=== PATIENT | female | born 1955 | race Two or more races ===

== ENCOUNTER → 2023-12-30 | Outpatient (CLI) | payer OTHER, SELFPAY ==
[2023-12-30 09:27] LABS: Glucose Estimated Average 103 mg/dL (80-131); Hemoglobin A1C 5.2 % Hgb (4.8-6.0)
[2023-12-30 09:30] LABS: Creatinine MALB Rnd Ur 102 mg/dL (30-125); Microalbumin, Random Urine < 3 mg/L (0-300)
[2023-12-30 09:32] LABS: Alanine Aminotransferase 19 U/L (10-49); Albumin, Serum 4.3 gm/dL (3.4-4.8); Alkaline Phosphatase 97 U/L (46-116); Anion Gap 5 (7-16); Aspartate Amino Transferase 20 U/L (0-34); BUN/Creatinine Ratio 30 Ratio (12-20); Bilirubin,Total 0.7 mg/dL (0.3-1.2); Blood Urea Nitrogen 15 mg/dL (9-23); Calcium 9.3 mg/dL (8.3-10.6); Calcium (Corrected) 9.3 mg/dL (8.5-10.1); Carbon Dioxide 25.4 mMol/L (20.0-31.0); Cardiac Risk Estimate 1.9 RATIO (3.7-5.6); Chloride 110 mMol/L (98-107); Cholesterol 125 mg/dL (132-200); Creatinine (Component) 0.5 mg/dL (0.6-1.3); Globulin 2.1 gm/dL (2.3-3.5); Glucose 90 mg/dL (74-106); HDL Cholesterol 67 mg/dL (40-60); LDL Cholesterol,Calculated 41 mg/dL (0-130); Osmolality,Calculated 280 (275-295); Potassium 4.3 mMol/L (3.4-5.1); Sodium 140 mMol/L (136-145); Total Protein 6.4 gm/dL (5.7-8.2); Triglycerides 85 mg/dL (30-150); eGFR > 60 See Note
[2023-12-30 09:33] LABS: Vitamin D 25 Hydroxy Total 36.9 ng/mL (7.3-40.2)
[2023-12-30 09:35] LABS: Parathyroid Hormone Intact 86.4 pg/ml (18.5-88.0)
== END | disposition home or self-care (01) ==
LOC: CDIM 08:12 → COPL 08:16
PROVIDERS: PCP Specialist; Referring Provider Specialist; Visit Provider Specialist
DX: E11.65 Type 2 diabetes mellitus with hyperglycemia (principal); E78.2 Mixed hyperlipidemia; E21.3 Hyperparathyroidism, unspecified
CPT/HCPCS: 36415; 80053; 80061; 82043; 82306; 82570; 83036; 83970

== ENCOUNTER → 2024-03-30 | Outpatient (CLI) | payer OTHER, SELFPAY ==
--- NOTE | 2024-03-30 09:07 | XR_ITS ---
Examination: Bilateral hips, AP pelvis, 5 views Technique: AP, lateral views both hips, AP pelvis, 5 views Exam date and time: March 30, 2024 0911 hours INDICATIONS: Bilateral hip pain beginning 3 weeks ago. FINDINGS: Prominent osteopenia Moderate narrowing right hip joint Mild narrowing left hip joint No hip or pelvic fracture IMPRESSION: Moderate narrowing right hip joint Mild narrowing left hip joint
== END | disposition home or self-care (01) ==
PROVIDERS: PCP Specialist; Referring Provider Specialist; Visit Provider Specialist
DX: M25.852 Other specified joint disorders, left hip (principal); M25.851 Other specified joint disorders, right hip
CPT/HCPCS: 73523

== ENCOUNTER → 2024-06-08 | Outpatient (CLI) | payer OTHER, SELFPAY ==
--- NOTE | 2024-06-08 | XR_ITS ---
Examination: Bilateral knees, standing AP 2 views. Technique: Standing bilateral AP knees single view, standing bilateral PA knees single view, flexion Exam date and time: June 08, 2024 0921 hours INDICATIONS: Bilateral knee pain beginning 6 months ago FINDINGS: Prominent osteopenia Advanced narrowing lateral joint space right knee Advanced narrowing medial joint space left knee Significant osteoarthritis lateral joint space left knee No fractures IMPRESSION: Advanced narrowing lateral joint space right knee Advanced narrowing medial joint space left knee
--- NOTE | 2024-06-08 09:08 | XR_ITS ---
Examination: Lumbar spine 3 views Technique one AP lateral coned lateral lower lumbar spine 3 views Exam date and time: June 08, 2024 0921 hours INDICATIONS: Low back pain radiating down the left leg several years FINDINGS: Moderate osteopenia Chronic osteoporotic compression T12 No acute lumbar fracture Moderate to advanced degenerative disc disease at the lower 4 lumbar levels No spondylolisthesis IMPRESSION: Moderate to advanced degenerative disc disease at the lower 4 lumbar levels
== END | disposition home or self-care (01) ==
PROVIDERS: PCP Specialist; Referring Provider Orthopaedic Surgery; Visit Provider Orthopaedic Surgery
DX: M51.360 Other intervertebral disc degeneration, lumbar region with discogenic back pain only (principal); M25.862 Other specified joint disorders, left knee; M25.861 Other specified joint disorders, right knee
CPT/HCPCS: 72100; 73565

== ENCOUNTER → 2024-06-25 | Outpatient (CLI) | payer OTHER, SELFPAY ==
--- NOTE | 2024-06-25 13:20 | XR_ITS ---
Examination: Bone densitometry Date and time of exam:June 25, 2024 1347 hours INDICATIONS: Menopause age 57 postmenopausal rib and sternal fractures Technique: Lumbar spine and hip total bone mineralization values of an calculated. Peak reference and age match control results have been displayed. Findings: Lumbar spine total bone mineralization is1.022 gm/cm2. This is 0.2 standard deviations below peak reference. This is 1.7 standard deviations above age-matched controls. Hip total bone mineralization is 0.770 gm/cm2 This is 1.4 standard deviations below peak reference. This is 0.2 standard deviations below age-matched controls Impression: There is normal mineralization based on lumbar spine measurements. There is osteopenia based on hip measurements Lumbar mineralization is increase 0.1% compared with January 29, 2022 Hip mineralization is decreased 8% compared with January 29, 2022
== END | disposition home or self-care (01) ==
LOC: CDIM 13:11
PROVIDERS: Referring Provider Specialist; Visit Provider Specialist
DX: Z13.820 Encounter for screening for osteoporosis (principal); M85.89 Other specified disorders of bone density and structure, multiple sites
CPT/HCPCS: 77080

== ENCOUNTER → 2024-08-10 | Outpatient (CLI) | payer OTHER, SELFPAY ==
[2024-08-10 10:31] LABS: Glucose Estimated Average 100 mg/dL (80-131); Hemoglobin A1C 5.1 % Hgb (4.8-6.0)
[2024-08-10 10:37] LABS: Alanine Aminotransferase 19 U/L (10-49); Albumin, Serum 4.1 gm/dL (3.4-4.8); Albumin/Globulin Ratio 1.8 (1.2-2.2); Alkaline Phosphatase 115 U/L (46-116); Anion Gap 5 (7-16); Aspartate Amino Transferase 26 U/L (0-34); BUN/Creatinine Ratio 27 Ratio (12-20); Bilirubin,Total 0.6 mg/dL (0.3-1.2); Blood Urea Nitrogen 16 mg/dL (9-23); Cardiac Risk Estimate 1.9 RATIO (3.7-5.6); Chloride 110 mMol/L (98-107); Cholesterol 119 mg/dL (132-200); Creatinine (Component) 0.6 mg/dL (0.6-1.3); Globulin 2.3 gm/dL (2.3-3.5); Glucose 87 mg/dL (74-106); HDL Cholesterol 63 mg/dL (40-60); LDL Cholesterol,Calculated 43 mg/dL (0-130); Osmolality,Calculated 287 (275-295); Potassium 4.6 mMol/L (3.4-5.1); Sodium 144 mMol/L (136-145); Total Protein 6.4 gm/dL (5.7-8.2); Triglycerides 63 mg/dL (30-150); eGFR > 60 See Note
[2024-08-10 10:40] LABS: Creatinine MALB Rnd Ur 148 mg/dL (30-125); Microalbumin Creat Ratio 4 mg/gCrea (<30); Microalbumin, Random Urine 6 mg/L (0-300)
== END | disposition home or self-care (01) ==
LOC: COPL 08:57
PROVIDERS: PCP Specialist; Referring Provider Specialist; Visit Provider Specialist
DX: E11.65 Type 2 diabetes mellitus with hyperglycemia (principal); E78.2 Mixed hyperlipidemia
CPT/HCPCS: 36415; 80053; 80061; 82043; 82570; 83036

== ENCOUNTER 2024-09-18 09:18 | Outpatient (AMB) | payer OTHER, SELFPAY ==
[2024-09-18 09:35] VITALS: BP 108/72; PULSE 71; RESP 18; TEMP 36.2; O2SAT 96; BMI 31.7
--- NOTE | 2024-09-18 09:35 | ORTHONT_ITS ---
Vital signs 09/18/24 09:35 Height 1.63 m Height Method Stated Weight 83.943 kg Weight Measurement Method Standing Scale BMI 31.7 BP 108/72 Blood Pressure Source Automatic Cuff Blood Pressure Location Left Upper Arm Position Sitting Respiration 18 Pulse 71 Pulse Source Monitor Temp 97.2 F Temp Source Temporal Artery Scan Pulse Oximetry (%) 96 Oxygen Delivery Method Room Air Med/Allergies Allergies & Medications Allergies No Known Allergies Allergy (Verified 09/18/24 09:35) Medication Reconciliation rosuvastatin 5 mg tablet 5 mg PO HS 12/01/22 [History Confirmed 09/18/24] semaglutide 1 mg/dose (4 mg/3 mL) subcutaneous pen injector (Ozempic) 1 mg subcut QWEEK 12/01/22 [History Confirmed 09/18/24] celecoxib 50 mg capsule 50 mg PO BID 09/18/24 [History Confirmed 09/18/24] Exam Exam Patient is in no acute distress and is cooperative with the examination today. Breathing is nonlabored. Patient has a normal mood and affect. Bilateral extremities were evaluated and demonstrates sensation intact to light touch. Palpable pedal pulses are present. No significant edema is present. Bilateral hips were examined. The patient has no pain with log roll of the hips. Internal rotation to 30 degrees and external rotation to 30 degrees is painless. Negative FADIR. Right knee was examined today. The right knee is in reasonable alignment. Range of motion from 0-120 degrees. Knee is stable to varus and valgus as well as AP translation with <5mm. Patient has a negative McMurrays. There is no pain with patellofemoral compression and no crepitus noted. The knee is nontender to palpation. Left knee was examined today. The left knee is in varus alignment. Range of motion from 0-115 degrees. Knee is stable to varus and valgus as well as AP translation with <5mm. Patient has a negative McMurrays. There is no pain with patellofemoral compression and no crepitus noted. The knee is tender to palpation medially. X-rays demonstrate significant joint space loss medially on the left knee. She has near [id number] arthritis with osteophytes present. On the right side there is valgus arthritis with lateral joint space narrowing Assessment and Plan Problem List (1) Degenerative arthritis of knee, bilateral: Status: Acute Plan: Patient is a pleasant 69-year-old female with bilateral knee pain and bilateral knee arthritis. We discussed different treatment options. The left knee pain is worse than the right. We discussed nonoperative treatment she has failed this including Celebrex that she is very against needles. At this point she has failed conservative treatment we discussed total knee replacement is a reasonable option. She would like to start on the left as this is significantly worse The nature and purpose of the total knee replacement, alternative method(s) of treatment, the material risks involved, and the possibility of complications were fully explained to the patient. The patient does NOT have any of the following contraindications to TKA: - Active infection of the knee joint, OR - Active systemic bacteremia, OR - Active skin infection or open wound at surgical site, OR - Neuropathic arthritis, OR - Severe, rapidly progressive neurological disease, OR - Severe medical condition that makes risks of surgery outweigh the potential benefit The patient was told the most common risks and complications associated with a total knee replacement include, but are not limited to: blood clots in the leg, fatal pulmonary embolism, dislocation of the prosthesis, intraoperative and postoperative fractures of the femur or tibia, infection, failure of the prosthesis or grafting materials, complications from anesthesia, reactions to blood transfusions, postoperative leg length inequality, instability of the knee replacement, nerve damage or injury, vascular injury, delayed wound healing, infection, other injury or even . In addition, there are risks associated with anesthesia given during this operation. Also, the patient was told that after undergoing a total knee replacement there may still be persistent pain or disability. The patient was informed that the success of this operation in part depends upon the mechanical devices which are going to be implanted and that these devices can fail or malfunction, and may need to be repaired or replaced and there are no guarantees as to the longevity of this device or its parts and that it or its parts could fail prematurely. The patient was also notified that during the course of surgery, there may be a need to use bone graft from donors, and that any bone graft used will be carefully screened for communicable diseases, including AIDS, hepatitis, Burton-Creutzfeldt, or other diseases, but despite the screening procedures, there is a small chance that they could contract one of these diseases. Finally, the patient was asked to follow completely and fully with all advice and recommended treatments, and that recovery and ultimate outcome are affected by their compliance with recommended treatment. We discussed the risks, benefits and treatment alternatives, and the patient is interested in proceeding with surgery. We will try to set this up as expeditiously as possible. Advanced Care Planning Discussion Advance care planning discussed with:: patient Office Procedures GNS Level of Care Nursing/Assessment Patient Status: Initial/New Patient Nursing Assessment/Reassesment: Medication Reconciliation, Update PMH in EMR and Vital Signs Coordination of Care: Complex Care and Chronic Disease 1-5, Education Complex Pt/Fam, Consent,records obtained, informed consent, 1 Ins Authorization, Lab and Imaging orders, Results/Orders obtained and Staff clarify orders New Patient Charge New Patient Point Assignment: 1124 New Patient Point Charge: HAND CLOTH FOLDER Level 4 ([id number]) MA Intake Visit Data Collection New Patient or Established: New Patient (never been to [facility]) Reason for Visit:: OA LEFT KNEE Seen by Clinical Staff ONLY (RN/MA): No PCP or OBGYN visit in last 3 months: Yes Hx Now: No Do You Feel Safe at Home: Yes Authorities Contacted: N/A Questionairres Past Medical History Past Medical History Have you ever been diagnosed with any of the following: Neurological Problems Seizures: No Migraine: Yes Cardiology Problems Hypercholesterolemia: Yes Congestive Heart Failure: No Hypertension: Yes Respiratory Problems Chronic Obstructive Pulmonary Disease (COPD): No Smoking: Yes (40 YEARS) Smoking Cessation Counseling: No Smoking Exposure: Yes Stomache/Intestinal Problems Ulcer: Yes (HOSP X3 DAYS 2015) Obesity: Yes Genital/Urinary Problems Renal Disease: No Reproductive Problems Previous Pregnancies: Yes (X4) Musculoskeletal Problems Arthritis: Yes Head,Eye,Nose,Throat Problems Eye Prosthesis: Yes (BRAULIO LASIK) Endocrine Problems Diabetes Mellitus Type 1: No Diabetes Mellitus Type 2: Yes Blood Problems Anemia: Yes Other Problems Hospitalization: Yes ([facility]P [facility] 2016) Shingles: Yes (2014) Falls: Yes (11/01) Blood Transfusions: No Blood Transfusion Reaction: No Anesthesia Reactions: No Chemotherapy: No Radiation Therapy: No MRSA: No Chicken Pox: Yes Cancer: No Subjective Visit Visit for: new patient and knee (LEFT) Immunization / Flu Flu Vaccine in the Last 12 Months: Yes Flu Vaccine Exclusion Criteria: Already Received History of Present Illness Chief complaint: OSTEOARTHRITIS LEFT KNEE Date of injury / onset of symptoms: 5+ YEARS Date of 1st surgery (if applicable): 10 YEARS AGO MENISCUS TEAR BL KNEE BY DR BERNICE Ash is a pleasant 69-year-old female with left knee pain that has been ongoing for a while. She has had a prior meniscectomy 10 years ago. She has significant left knee pain. She is very against the needles and does not want a n injection today. She reports the pain is affecting her quality life and happiness. She has tried Celebrex. Personal History Occupation: RETIRED TEACHER Hobbies: WALKING Red flag PMH: smoker BMI Counceling provided: Yes Additional comments: SMOKER 40+ YERAS Pain Pain level (0-10): 6 Pain duration: WORSE AT NIGHT Pain location: anterior and posterior Pain quality: sharp, dull, aching and other (specify) (THROBBING) Pain timing: night and increases with activity Associated signs & symptoms: other (specify) Ambulatory data Ambulatory device: none Treatments Number of previous injections: 0 Improvement with previous injections: No Improvement with PT: No Improvement with NSAIDS: no Review of Systems Review of Systems: All systems negative unless otherwise noted in HPI.
== END 2024-09-18 10:11 | disposition home or self-care (01) ==
LOC: HODSRG 09:18
PROVIDERS: PCP Specialist; Referring Provider Specialist; Supervising Provider Orthopaedic Surgery Adult Reconstructive Orthopaedic Surgery; Visit Provider Orthopaedic Surgery Adult Reconstructive Orthopaedic Surgery
DX: M17.0 Bilateral primary osteoarthritis of knee (principal); M25.562 Pain in left knee; M25.561 Pain in right knee; I10 Essential (primary) hypertension; E78.00 Pure hypercholesterolemia, unspecified; E11.9 Type 2 diabetes mellitus without complications; E66.9 Obesity, unspecified; Z71.3 Dietary counseling and surveillance; Z68.31 Body mass index [BMI] 31.0-31.9, adult
CPT/HCPCS: 99204; G0463

== ENCOUNTER → 2024-10-09 | Outpatient (CLI) | payer OTHER, SELFPAY ==
--- NOTE | 2024-10-09 14:15 | XR_ITS ---
Examination: Screening digital mammography, bilateral Computer aided detection 3-D breast Tomosynthesis, bilateral Date and time of exam: 10/09/2024, 1:50 PM Comparisons: May 2015 through June 2023 Indications: Screening, prior right lumpectomy Technique: Nonmagnified MLO, CC views of the breasts to been obtained, reconstructed from 3-D Tomosynthesis images. R2 computer aided detection program utilized for evaluation of suspicious masses and/or abnormal calcifications. 3-D Tomosynthesis images obtained. Technologist: Findings: There are scattered areas of fibroglandular density. No evidence of abnormal masses or suspicious calcifications. Impression: BI-RADS category 1: Negative findings (within normal) Recommend 1 year follow-up mammogram
== END | disposition home or self-care (01) ==
LOC: CDIM 13:42
PROVIDERS: Referring Provider Specialist; Visit Provider Specialist
DX: Z12.31 Encounter for screening mammogram for malignant neoplasm of breast (principal); R92.313 Mammographic fatty tissue density, bilateral breasts
CPT/HCPCS: 77063; 77067

== ENCOUNTER → 2024-12-04 | Outpatient (CLI) | payer OTHER, SELFPAY ==
[2024-12-04 16:23] LABS: Collection Type, Urine Clean Catch
[2024-12-04 17:33] LABS: Basophils # (Auto) 0.0 Thou/mm3 (0.0-0.2); Basophils % (Auto) 1 % (0-2.5); Eosinophils # (Auto) 0.2 Thou/mm3 (0.0-0.5); Eosinophils % (Auto) 3 % (0-10); Hematocrit 40.8 % (36.0-46.0); Hemoglobin 13.2 g/dL (12.0-16.0); Immature Granulocytes Auto 0.02 Thou/mm3 (0.00-0.00); Lymphocytes # (Auto) 1.6 Thou/mm3 (1.0-4.8); Lymphocytes % (Auto) 27 % (10-50); Mean Corpuscular HGB Conc 32.4 g/dl (31.0-37.0); Mean Corpuscular Hemoglobin 31.5 pg (25.0-35.0); Mean Corpuscular Volume 97 fL (80-100); Monocytes # (Auto) 0.4 Thou/mm3 (0.0-0.8); Monocytes % (Auto) 7 % (0-12); Neutrophils # (Auto) 3.7 Thou/mm3 (1.8-7.7); Neutrophils % (Auto) 62 % (37-80); Nucleated Red Blood Cell # 0.00 Thou/mm3 (0.00-0.00); Nucleated Red Blood Cell % 0 /100 WBC (0); Platelet Count 158 Thou/mm3 (140-440); RDW Standard Deviation 47.8 fL (36.4-46.3); Red Blood Count 4.19 Miln/mm3 (4.00-5.20); White Blood Count 5.9 Thou/mm3 (3.6-11.0)
[2024-12-04 17:37] LABS: Bilirubin,Urine Negative (Negative); Blood,Urine Negative (Negative); Clarity,Urine Clear (Clear/Hazy); Color,Urine Yellow (Lt Yel-Yel); Culture Indicated,Urine Not Indicated; Glucose, Urine Negative (Negative); Hyaline Casts,Urine < 1 /hpf (0-1); Ketones,Urine Negative (Negative); Leukocyte Esterase,Urine Negative (Negative); Nitrite,Urine Negative (Negative); PH,Urine 6.0 (5.0-7.0); Protein,Urine Negative (Neg - Trace); RBC,Urine 4 /hpf (0-3); Specific Gravity,Urine 1.016 (1.001-1.035); Squamous Epithelial Cell,Urine 1 /hpf (0-5); Urobilinogen,Urine Negative mg/dL (0.0-1.0); WBC,Urine 1 /hpf (0-5)
[2024-12-04 17:40] LABS: INR 1.0 (0.9-1.3); Partial Thromboplastin Time 25.1 Seconds (22.0-36.0); Prothrombin Time 10.6 Seconds (9.0-12.2)
[2024-12-04 17:42] LABS: Creatinine MALB Rnd Ur 79 mg/dL (30-125); Microalbumin Creat Ratio 8 mg/gCrea (<30); Microalbumin, Random Urine 6 mg/L (0-300)
[2024-12-04 17:43] LABS: Glucose Estimated Average 105 mg/dL (80-131); Hemoglobin A1C 5.3 % Hgb (4.8-6.0); Parathyroid Hormone Intact 102.3 pg/ml (18.5-88.0)
[2024-12-04 17:45] LABS: Alanine Aminotransferase 18 U/L (10-49); Albumin, Serum 4.5 gm/dL (3.4-4.8); Albumin/Globulin Ratio 2.5 (1.2-2.2); Alkaline Phosphatase 104 U/L (46-116); Anion Gap 7 (7-16); Aspartate Amino Transferase 24 U/L (0-34); BUN/Creatinine Ratio 30 Ratio (12-20); Bilirubin,Total 0.4 mg/dL (0.3-1.2); Blood Urea Nitrogen 18 mg/dL (9-23); Calcium 9.5 mg/dL (8.3-10.6); Calcium (Corrected) 9.5 mg/dL (8.5-10.1); Carbon Dioxide 27.0 mMol/L (20.0-31.0); Cardiac Risk Estimate 1.9 RATIO (3.7-5.6); Chloride 109 mMol/L (98-107); Cholesterol 117 mg/dL (132-200); Creatinine (Component) 0.6 mg/dL (0.6-1.3); Globulin 1.8 gm/dL (2.3-3.5); Glucose 83 mg/dL (74-106); HDL Cholesterol 63 mg/dL (40-60); LDL Cholesterol,Calculated 36 mg/dL (0-130); Osmolality,Calculated 285 (275-295); Potassium 4.6 mMol/L (3.4-5.1); Sodium 143 mMol/L (136-145); Thyroid Stimulating Hormone 2.20 uIU/mL (0.55-4.78); Total Protein 6.3 gm/dL (5.7-8.2); Triglycerides 88 mg/dL (30-150); eGFR > 60 See Note
[2024-12-04 17:49] LABS: Folate 18.87 ng/mL (>5.38); Vitamin B12 294 pg/mL (211-911); Vitamin D 25 Hydroxy Total 34.4 ng/mL (7.3-40.2)
[2024-12-04 19:21] LABS: Ferritin 23 ng/mL (7.3-270.7)
[2024-12-04 19:33] LABS: Iron 82 mcg/dL (50-170); Percent Iron Saturation 21 % (20-55); Total Iron Binding Capacity 385 mcg/dL (250-425); Unsaturated Iron Binding 303 (225-295)
== END | disposition home or self-care (01) ==
LOC: COPL 16:05
PROVIDERS: PCP Specialist; Referring Provider Specialist; Visit Provider Specialist
DX: Z01.812 Encounter for preprocedural laboratory examination (principal); E11.65 Type 2 diabetes mellitus with hyperglycemia; E78.2 Mixed hyperlipidemia; E04.1 Nontoxic single thyroid nodule; Z98.84 Bariatric surgery status
CPT/HCPCS: 36415; 80053; 80061; 81001; 82043; 82306; 82570; 82607; 82728; 82746; 83036; 83540; 83550; 83970; 84443; 85025; 85610; 85730

== ENCOUNTER 2024-12-27 08:17 | Outpatient (AMB) | payer OTHER, SELFPAY ==
--- NOTE | 2024-12-27 08:40 | PD.ORTHCLVIS ---
Med/Allergies Allergies & Medications Allergies No Known Allergies Allergy (Verified 09/18/24 09:35) Exam Exam Patient is in no acute distress and is cooperative with the examination today. Breathing is nonlabored. Patient has a normal mood and affect. Bilateral extremities were evaluated and demonstrates sensation intact to light touch. Palpable pedal pulses are present. No significant edema is present. Bilateral hips were examined. The patient has no pain with log roll of the hips. Internal rotation to 30 degrees and external rotation to 30 degrees is painless. Negative FADIR. Right knee was examined today. The right knee is in reasonable alignment. Range of motion from 0-120 degrees. Knee is stable to varus and valgus as well as AP translation with <5mm. Patient has a negative McMurrays. There is no pain with patellofemoral compression and no crepitus noted. The knee is nontender to palpation. Left knee was examined today. The left knee is in varus alignment. Range of motion from 0-115 degrees. Knee is stable to varus and valgus as well as AP translation with <5mm. Patient has a negative McMurrays. There is no pain with patellofemoral compression and no crepitus noted. The knee is tender to palpation medially. X-rays demonstrate significant joint space loss medially on the left knee. She has near [id number] arthritis with osteophytes present. On the right side there is valgus arthritis with lateral joint space narrowing Assessment and Plan Problem List (1) Degenerative arthritis of knee, bilateral: Status: Acute Plan: Patient is a pleasant 69-year-old female with bilateral knee pain and bilateral knee arthritis. We discussed different treatment options. The left knee pain is worse than the right. We discussed nonoperative treatment she has failed this including Celebrex that she is very against needles. At this point she has failed conservative treatment we discussed total knee replacement is a reasonable option. She would like to start on the left as this is significantly worse The nature and purpose of the total knee replacement, alternative method(s) of treatment, the material risks involved, and the possibility of complications were fully explained to the patient. The patient does NOT have any of the following contraindications to TKA: - Active infection of the knee joint, OR - Active systemic bacteremia, OR - Active skin infection or open wound at surgical site, OR - Neuropathic arthritis, OR - Severe, rapidly progressive neurological disease, OR - Severe medical condition that makes risks of surgery outweigh the potential benefit The patient was told the most common risks and complications associated with a total knee replacement include, but are not limited to: blood clots in the leg, fatal pulmonary embolism, dislocation of the prosthesis, intraoperative and postoperative fractures of the femur or tibia, infection, failure of the prosthesis or grafting materials, complications from anesthesia, reactions to blood transfusions, postoperative leg length inequality, instability of the knee replacement, nerve damage or injury, vascular injury, delayed wound healing, infection, other injury or even . In addition, there are risks associated with anesthesia given during this operation. Also, the patient was told that after undergoing a total knee replacement there may still be persistent pain or disability. The patient was informed that the success of this operation in part depends upon the mechanical devices which are going to be implanted and that these devices can fail or malfunction, and may need to be repaired or replaced and there are no guarantees as to the longevity of this device or its parts and that it or its parts could fail prematurely. The patient was also notified that during the course of surgery, there may be a need to use bone graft from donors, and that any bone graft used will be carefully screened for communicable diseases, including AIDS, hepatitis, Burton-Creutzfeldt, or other diseases, but despite the screening procedures, there is a small chance that they could contract one of these diseases. Finally, the patient was asked to follow completely and fully with all advice and recommended treatments, and that recovery and ultimate outcome are affected by their compliance with recommended treatment. We discussed the risks, benefits and treatment alternatives, and the patient is interested in proceeding with surgery. We will try to set this up as expeditiously as possible. Advanced Care Planning Discussion Advance care planning discussed with:: patient Questionairres Past Medical History Past Medical History Have you ever been diagnosed with any of the following: Neurological Problems Seizures: No Migraine: Yes Cardiology Problems Hypercholesterolemia: Yes Congestive Heart Failure: No Hypertension: Yes Respiratory Problems Chronic Obstructive Pulmonary Disease (COPD): No Smoking: Yes (40 YEARS) Smoking Cessation Counseling: No Smoking Exposure: Yes Stomache/Intestinal Problems Ulcer: Yes (HOSP X3 DAYS 2015) Obesity: Yes Genital/Urinary Problems Renal Disease: No Reproductive Problems Previous Pregnancies: Yes (X4) Musculoskeletal Problems Arthritis: Yes Head,Eye,Nose,Throat Problems Eye Prosthesis: Yes (BRAULIO LASIK) Endocrine Problems Diabetes Mellitus Type 1: No Diabetes Mellitus Type 2: Yes Blood Problems Anemia: Yes Other Problems Hospitalization: Yes (H[facility]P FOR [facility] 2015) Shingles: Yes (2014) Falls: Yes (11/01) Blood Transfusions: No Blood Transfusion Reaction: No Anesthesia Reactions: No Chemotherapy: No Radiation Therapy: No MRSA: No Chicken Pox: Yes Cancer: No Subjective Visit Visit for: new patient and knee (LEFT) Immunization / Flu Flu Vaccine in the Last 12 Months: Yes Flu Vaccine Exclusion Criteria: Already Received History of Present Illness Chief complaint: OSTEOARTHRITIS LEFT KNEE Date of injury / onset of symptoms: 5+ YEARS Date of 1st surgery (if applicable): 10 YEARS AGO MENISCUS TEAR BL KNEE BY DR QUEEN Nilsa is a pleasant 69-year-old female with left knee pain that has been ongoing for a while. She has had a prior meniscectomy 10 years ago. She has significant left knee pain. She is very against the needles and does not want an injection today. She reports the pain is affecting her quality life and happiness. She has tried Celebrex. Personal History Occupation: RETIRED TEACHER Hobbies: WALKING Red flag PMH: smoker BMI Counceling provided: Yes Additional comments: SMOKER 40+ YERAS Pain Pain level (0-10): 6 Pain duration: WORSE AT NIGHT Pain location: anterior and posterior Pain quality: sharp, dull, aching and other (specify) (THROBBING) Pain timing: night and increases with activity Associated signs & symptoms: other (specify) Ambulatory data Ambulatory device: none Treatments Number of previous injections: 0 Improvement with previous injections: No Improvement with PT: No Improvement with NSAIDS: no Review of Systems Review of Systems: All systems negative unless otherwise noted in HPI.
[2024-12-27 09:03] VITALS: BP 125/78; PULSE 65; RESP 18; TEMP 36.6
== END 2024-12-27 08:50 | disposition home or self-care (01) ==
LOC: HODSRG 08:17
PROVIDERS: Supervising Provider Orthopaedic Surgery Adult Reconstructive Orthopaedic Surgery; Visit Provider Orthopaedic Surgery Adult Reconstructive Orthopaedic Surgery
DX: M17.0 Bilateral primary osteoarthritis of knee (principal); M25.562 Pain in left knee; M25.561 Pain in right knee

== ENCOUNTER 2024-12-31 05:45 | Day surgery (SDC) | payer OTHER, SELFPAY ==
[2024-12-28 10:49] VITALS: BMI 31.5
[2024-12-28 11:26] LABS: Basophils # (Auto) 0.0 Thou/mm3 (0.0-0.2); Basophils % (Auto) 0 % (0-2.5); Eosinophils # (Auto) 0.2 Thou/mm3 (0.0-0.5); Eosinophils % (Auto) 3 % (0-10); Hematocrit 41.7 % (36.0-46.0); Hemoglobin 13.7 g/dL (12.0-16.0); Immature Granulocytes Auto 0.02 Thou/mm3 (0.00-0.00); Lymphocytes # (Auto) 1.7 Thou/mm3 (1.0-4.8); Lymphocytes % (Auto) 27 % (10-50); Mean Corpuscular HGB Conc 32.9 g/dl (31.0-37.0); Mean Corpuscular Hemoglobin 31.6 pg (25.0-35.0); Mean Corpuscular Volume 96 fL (80-100); Monocytes # (Auto) 0.3 Thou/mm3 (0.0-0.8); Monocytes % (Auto) 5 % (0-12); Neutrophils # (Auto) 4.1 Thou/mm3 (1.8-7.7); Neutrophils % (Auto) 65 % (37-80); Nucleated Red Blood Cell # 0.00 Thou/mm3 (0.00-0.00); Nucleated Red Blood Cell % 0 /100 WBC (0); Platelet Count 151 Thou/mm3 (140-440); RDW Standard Deviation 47.3 fL (36.4-46.3); Red Blood Count 4.33 Miln/mm3 (4.00-5.20); White Blood Count 6.4 Thou/mm3 (3.6-11.0)
[2024-12-28 11:41] LABS: INR 1.0 (0.9-1.3); Partial Thromboplastin Time 25.1 Seconds (22.0-36.0); Prothrombin Time 10.6 Seconds (9.0-12.2)
[2024-12-28 11:44] LABS: Alanine Aminotransferase 12 U/L (10-49); Albumin, Serum 4.6 gm/dL (3.4-4.8); Albumin/Globulin Ratio 2.7 (1.2-2.2); Alkaline Phosphatase 97 U/L (46-116); Anion Gap 7 (7-16); Aspartate Amino Transferase 18 U/L (0-34); BUN/Creatinine Ratio 25 Ratio (12-20); Bilirubin,Total 0.6 mg/dL (0.3-1.2); Blood Urea Nitrogen 15 mg/dL (9-23); Calcium 9.4 mg/dL (8.3-10.6); Calcium (Corrected) 9.4 mg/dL (8.5-10.1); Carbon Dioxide 28.4 mMol/L (20.0-31.0); Chloride 109 mMol/L (98-107); Creatinine (Component) 0.6 mg/dL (0.6-1.3); Estimated Creatinine Clearance 95.0 mL/min (>60); Globulin 1.7 gm/dL (2.3-3.5); Glucose 82 mg/dL (74-106); Osmolality,Calculated 286 (275-295); Potassium 4.4 mMol/L (3.4-5.1); Sodium 144 mMol/L (136-145); Total Protein 6.3 gm/dL (5.7-8.2); eGFR > 60 See Note
[2024-12-31] VITALS (15 sets, daily range): BP systolic 102–145; BP diastolic 59–74; PULSE 61–92; RESP 16–20; TEMP 36.5–36.8; O2SAT 95–100; BMI 31.6
[2024-12-31] MEDS: PREGABALIN 75 MG CAPSULE PO (06:54)
[2024-12-31] MEDS: ACETAMINOPHEN 325 MG TABLET 650 MG PO (06:54)
[2024-12-31] MEDS: MELOXICAM 7.5 MG TABLET PO (06:56)
[2024-12-31] MEDS: RINGERS LACTATED 1000 ML 1,000 ML 20 ML IV (06:57)
--- NOTE | 2024-12-31 07:21 | SUR.PREOP ---
Patient expressed gratitude for prayer before her procedure.
--- NOTE | 2024-12-31 09:12 | SUR.PHASEI ---
0912 Patient arrived to recovery, awake and alert resting comfortably in rcorpus christi, breathing unlabored, vital signs stable, denies pain and nausea, dressing intact to left knee; prineo, abd, telfa, webril and dipika wraps, no bleeding noted, post spinal anesthesia assessment via ice; patient has dermatome sensation at T-10 (umbilicus), able to move bilateral lower extremities, bilateral dorsalis pedis pulses present when palpated, patient has good circulation to left lower extremity skin color normal for patient and warm to touch, report received from Dr. Rothman and Jaylen COX
--- NOTE | 2024-12-31 09:13 | ESOP_ITS ---
Date of Procedure 12/31/24 Pre Op Diagnosis left knee osteoarthritis Post Op Diagnosis left knee osteoarthritis Procedure left total knee replacement madeline Findings full thickness cartilage loss and osteophytes Procedure Description Indication: The patient has a long history of left knee pain. X-rays show degenerative arthritis involving the knee. Over the past several years the patient has had increasing pain, progressive limitation in function. He has failed conservative measures including activity modification, physical therapy, injections, anti- inflammatories, and assistive devices. After a lengthy discussion of the risks and benefits, the patient presents now for total knee replacement. The nature and purpose of the total knee replacement, alternative method(s) of treatment, the material risks involved, and the possibility of complications were fully explained to the patient. The patient was told the most common risks and complications associated with a total knee replacement include, but are not limited to blood clots in the leg, fatal pulmonary embolism, dislocation of the prosthesis, intraoperative and postoperative fractures of the femur or tibia, infection, failure of the prosthesis or grafting materials, complications from anesthesia, reactions to blood transfusions, postoperative leg length inequality, instability of the knee replacement, nerve damage or injury, vascular injury, delayed wound healing, infections, other injury or even . In addition, there are risks associated with anesthesia given during this operation, temporary or permanent numbness on the skin lateral to the incision can be a complication unique to total knee surgery, and kneeling can be painful after knee replacement surgery. Also, the patient was told that after undergoing a total knee replacement there may still be pain or disability. We discussed with the patient that we will be using a robot-assisted technology. We discussed that there is a possibility of converting to manual instrumentation. The patient was informed that the success of this operation in part depends upon the mechanical devices which are going to be implanted and that these devices can fail or malfunction, and may need to be repaired or replaced and there are no guarantees as to the longevity of this device or its part and that it or its parts could fail prematurely. Finally, the patient was asked to follow completely and fully with all advice and recommended treatments, and that recovery and ultimate outcome are affected by their compliance with recommended treatment. Surgical technique: Patient was marked and consented in the pre-operative area. The patient was brought to the operating room and placed on the operating table in a supine position. Prior to positioning, a timeout procedure was performed between the surgeon, the anesthesiologist, and the nursing staff where the patient and the operative side were identified and confirmed. After adequate general anesthetic was obtained, the left lower extremity was prepped and draped in the usual sterile fashion. A weight based dose of Cefazolin were administered within 1 serge r prior to incision. The robot was preregistered and calibrated before the incision. The extremity was exsanguinated with an esmarch badge and tourniquet inflated to 250mmHg. A midline incision was made. A median parapatellar arthrotomy was made. The patella was subluxed laterally. A medial release was performed to expose the medial tibia. His femoral and tibial pins were placed through an intra incisional manner for both cases. Every effort was made to ensure that the distalmost aspect of the pin was hung in the second cortex. The arrays were then tightened several times to ensure that it was fixed for the remainder of the case. Both femoral and tibial checkpoints were then placed. We then went through the registration process of the bone. We then assessed the knee deformity and attempted to correct it. We also used the robot to aid in judging laxity in both extension and flexion. Final based on laxity and alignment we changed the preoperative assessment to obtain proper proper implant positioning and to correct deformity. Attention was then placed to the tibia. We made a tibial cut using the robot ensuring that both the MCL and the patella tendon were protected with retractors. We then went to the femur and made the posterior cut followed by the anterior cut and the anterior chamfer. The bone was then removed and we made a distal femur cut and a posterior chamfer cut. We verified all cuts. A trial reduction was performed with a size 5 femoral component and a size 4 keeled tibial component. The patella tracked centrally, and no lateral retinacular release was necessary. The trial implants were removed. The arrays, pins, and checkpoints were all removed. We performed a verification that all pins were removed. The cut bone surfaces were lavaged. A size 5 left femoral component, a size 4 keeled tibial component were impacted into position. The knee was felt to be well balanced in the sagittal and coronal plane. The final 4x11 mm cruciate- substituting articular insert was impacted into the tibial tray. The knee was br ought out to full extension, flexed up to 120 degrees. It was stable to varus and valgus stress and appropriately balanced in flexion and extension. The wounds were copiously irrigated following deflation of tourniquet. The medial retinaculum was reapproximated with #1 vicryl and quill. The subcutaneous tissues were closed with 0 and 2-0 interrupted Vicryl. The skin was closed with 3-0 Monofilament V loc suture. A sterile dressing was applied. The patient was transferred to a bed and brought to recovery in stable condition. The patient tolerated the procedure well. There were no intraoperative complications. Sponge and needle counts were correct times 2. As the attending surgeon, I attakilah I was present and performed the entire operation. Grafts/Implants Size 5 CR Femur Size 4 Tibia 11mm poly CS Anesthesia spinal Implants Implants comments: yaneli Pathology / specimen None Pathology comment: none Estimated Blood Loss 150 Condition Stable Disposition same day Surgeon Juan Souza MD Surgical Staff Operation Date: 12/31/24 07:30 Case Staff Anesthesiologist: Michael Rothman RNfiberglass laminator: Roxy Woodward
--- NOTE | 2024-12-31 09:14 | XR_ITS ---
EXAMINATION: AP lateral left knee 2 views TECHNIQUE: AP lateral left knee 2 views Date and time: December 31, 2024, 0950 hours INDICATIONS: Postop knee replacement FINDINGS: Total left knee arthroplasty. Satisfactory alignment Moderate osteopenia. No fracture IMPRESSION: Total left knee arthroplasty with satisfactory alignment
--- NOTE | 2024-12-31 09:56 | SUR.PHASEII ---
xray complete per MD order
--- NOTE | 2024-12-31 11:51 | SUR.PHASEII ---
patient cleared by physical therapist Monika, voided in restroom, will proceed with discharge
--- NOTE | 2024-12-31 12:10 | SUR.PHASEII ---
1210 Patient meets discharge criteria from recovery, awake and alert, breathing unlabored, vital signs stable, denies pain and nausea, dressing intact; no bleeding noted, able to dress herself into her clothing, discharge instructions given to patient and patients son, son signed discharge instructions. Patient given all her belongings prior to discharge, transported via wheelchair and left in a private vehicle.
== END 2024-12-31 12:10 | disposition home or self-care (01) ==
PROVIDERS: Anesthesiology; PCP Specialist; Referring Provider Orthopaedic Surgery Adult Reconstructive Orthopaedic Surgery; Visit Provider Orthopaedic Surgery Adult Reconstructive Orthopaedic Surgery
PROC: (CPT 20985; principal; 2024-12-31 07:30)
DX: M17.12 Unilateral primary osteoarthritis, left knee (principal); M25.762 Osteophyte, left knee
CPT/HCPCS: 20985; 27447; 36415; 73560; 80053; 85025; 85610; 85730; 97162; A4217; A4649; C1713; C1776; J0690; J1100; J2250; J2371; J2704; J2795; J3010; J3490; J7120; A4648; A9270

== ENCOUNTER 2025-01-15 08:46 | Outpatient (AMB) | payer OTHER, SELFPAY ==
--- NOTE | 2025-01-15 09:11 | PD.ORTHCLVIS ---
Vital signs 01/15/25 09:17 Height 1.63 m Height Method Measured Weight 82.667 kg Weight Measurement Method Standing Scale BMI 31.1 BP 116/76 Blood Pressure Source Automatic Cuff Blood Pressure Location Left Upper Arm Position Sitting Respiration 18 Pulse 75 Pulse Source Monitor Temp 97.7 F Temp Source Temporal Artery Scan Pulse Oximetry (%) 98 Oxygen Delivery Method Room Air Med/Allergies Allergies & Medications Allergies No Known Allergies Allergy (Verified 01/15/25 09:18) Medication Reconciliation rosuvastatin 5 mg tablet 5 mg PO HS 12/01/22 [History Confirmed 01/15/25] semaglutide 1 mg/dose (4 mg/3 mL) subcutaneous pen injector (Ozempic) 1 mg subcut QWEEK 12/01/22 [History Confirmed 01/15/25] celecoxib 200 mg capsule 200 mg PO DAILY 12/28/24 [History Confirmed 01/15/25] cholecalciferol (vitamin D3) 50 mcg (2,000 unit) tablet (D3 DOTS) 50 mcg PO QDAY 12/28/24 [History Confirmed 01/15/25] omeprazole 40 mg capsule,delayed release 40 mg PO DAILY 12/28/24 [History Confirmed 01/15/25] acetaminophen 500 mg tablet (Acetaminophen Extra Strength) 1,000 mg (2 x 500 mg) PO Q6H PRN pain #90 tabs 12/31/24 [Rx Confirmed 01/15/25] aspirin 81 mg tablet,delayed release 81 mg PO BID #60 tabs 12/31/24 [Rx Confirmed 01/15/25] doxycycline hyclate 100 mg tablet 100 mg PO BID #14 tabs 12/31/24 [Rx Confirmed 01/15/25] gabapentin 300 mg capsule 300 mg PO .qhs #30 caps 12/31/24 [Rx Confirmed 01/15/25] oxycodone 5 mg tablet 5 mg PO Q6H PRN pain #28 tabs 12/31/24 [Rx Confirmed 01/15/25] sennosides 8.6 mg-docusate sodium 50 mg tablet (Senna-S) 1 tab-cap PO QDAY #30 tabs 12/31/24 [Rx Confirmed 01/15/25] Exam Exam Patient is in no acute distress and is cooperative with the examination today. Breathing is nonlabored. Patient has a normal mood and affect. The patient has a gait that is nonantalgic Bilateral extremities were evaluated and demonstrates sensation intact to light touch. Palpable pedal pulses are present. No significant edema is present. Bilateral hips were examined. The patient has no pain with log roll of the hips. Internal rotation to 30 degrees and external rotation to 30 degrees is painless. Negative FADIR. Left knee incision is clean dry and intact. Knee feels stable varus valgus stress as well as AP translation Assessment and Plan Problem List (1) Degenerative arthritis of knee, bilateral: Status: Acute Plan: Patient is a pleasant 69-year-old female with bilateral knee pain and bilateral knee arthritis. Patient is doing well status post left total knee replacement. Will see her back in 4 weeks for routine follow-up Advanced Care Planning Discussion Advance care planning discussed with:: patient Office Procedures GNS Level of Care Nursing/Assessment Patient Status: Established Patient Nursing Assessment/Reassesment: Medication Reconciliation, Update PMH in EMR and Vital Signs Coordination of Care: Complex Care and Chronic Disease 1-5, Education Complex Pt/Fam, Consent,records obtained, informed consent, Results/Orders obtained and Staff clarify orders Established Patient Charge Established Patient Point Assignment: 95 Established Patient Point Charge: EP Level 3 (80-115) MA Intake Visit Data Collection New Patient or Established: Established Patient (seen at [facility] within 3 years) Reason for Visit:: 2 WEEK POST OP LT KNEE Seen by Clinical Staff ONLY (RN/MA): No Retail Inventory Control Clerk Required: No PCP or OBGYN visit in last 3 months: Yes Hx Now: No Do You Feel Safe at Home: Yes Authorities Contacted: N/A Questionairres Past Medical History Past Medical History Have you ever been diagnosed with any of the following: Neurological Problems Seizures: No Migraine: Yes Cardiology Problems Hypercholesterolemia: Yes Congestive Heart Failure: No Hypertension: Yes Varicose Veins: Yes Respiratory Problems Chronic Obstructive Pulmonary Disease (COPD): No Smoking: Yes (40 YEARS) Smoking Cessation Counseling: No Smoking Exposure: Yes Stomache/Intestinal Problems Ulcer: Yes (HOSP X3 DAYS 2015) Obesity: Yes Genital/Urinary Problems Renal Disease: No Reproductive Problems Previous Pregnancies: Yes (X4) Musculoskeletal Problems Arthritis: Yes Head,Eye,Nose,Throat Problems Eye Prosthesis: No Endocrine Problems Diabetes Mellitus Type 1: No Diabetes Mellitus Type 2: Yes Blood Problems Anemia: No Other Problems Hospitalization: Yes ([facility] 2016) Shingles: Yes (2015) Falls: Yes (11/01) Blood Transfusions: No Blood Transfusion Reaction: No Anesthesia Reactions: No Chemotherapy: No Radiation Therapy: No MRSA: No Chicken Pox: Yes Cancer: No Subjective Visit Visit for: follow up visit and knee Immunization / Flu Flu Vaccine in the Last 12 Months: Yes Flu Vaccine Exclusion Criteria: Already Received History of Present Illness Chief complaint: 2 WEEK POST OP LT KNEE Date of injury / onset of symptoms: 5+ YEARS Date of 1st surgery (if applicable): 10 YEARS AGO MENISCUS TEAR BL KNEE BY DR QUEEN Patient is a 69 yo female s/p L TKA. She is doing well and has minimal. Personal History Occupation: RETIRED TEACHER Hobbies: WALKING Red flag PMH: smoker BMI Counceling provided: Yes Additional comments: SMOKER 40+ YERAS Pain Pain level (0-10): 4 Pain duration: WORSE AT NIGHT Pain location: anterior and posterior Pain quality: sharp, dull, aching and other (specify) (THROBBING) Pain timing: night and increases with activity Associated signs & symptoms: other (specify) Ambulatory data Ambulatory device: walker Treatments Number of previous injections: 0 Improvement with previous injections: No Improvement with PT: No Improvement with NSAIDS: no Review of Systems Review of Systems: All systems negative unless otherwise noted in HPI.
[2025-01-15 09:17] VITALS: BP 116/76; PULSE 75; RESP 18; TEMP 36.5; O2SAT 98; BMI 31.1
== END 2025-01-15 09:37 | disposition home or self-care (01) ==
LOC: HODSRG 08:46
PROVIDERS: PCP Specialist; Referring Provider Specialist; Supervising Provider Orthopaedic Surgery Adult Reconstructive Orthopaedic Surgery; Visit Provider Orthopaedic Surgery Adult Reconstructive Orthopaedic Surgery
DX: Z47.1 Aftercare following joint replacement surgery (principal); Z96.652 Presence of left artificial knee joint; M17.11 Unilateral primary osteoarthritis, right knee; M25.562 Pain in left knee; M25.561 Pain in right knee; I10 Essential (primary) hypertension
CPT/HCPCS: 99213; G0463